=== PATIENT | female | born 1975 | race Two or more races ===

== ENCOUNTER 2019-05-24 05:40 | Day surgery (SDC) | payer OTHER | END 2019-05-24 09:25 | disposition home or self-care (01) | LOC: AMB-ENDOS 05:40 → ADM 11:00 → AMB-ENDOS 11:00 | DX: K29.50 Unspecified chronic gastritis without bleeding (principal); K44.9 Diaphragmatic hernia without obstruction or gangrene; K29.60 Other gastritis without bleeding ==